=== PATIENT | male | born 1995 | race Two or more races ===

== ENCOUNTER 2016-07-10 09:11 | Emergency (ER) | payer OTHER ==
[2016-07-10 09:20] VITALS: BP 128/73; PULSE 106; TEMP 98.8; BMI 24.5
--- NOTE | 2016-07-10 10:52 | PDOC ---
History of Present Illness - General Chief Complaint: Cold Symptoms Stated Complaint: COUGH, NOSE BLEED Time Seen by Provider: 07/10/16 09:55 History Source: Patient, Parent(s) Exam Limitations: No Limitations - History of Present Illness Initial Comments: 07/11/16 19:33 Chief complaint: Nasal congestion, hoarse voice, dry cough, nose bleed Story of present illness: Patient is a 20-year-old male with no significant medical history here today complaining of nasal congestion, with hoarse voice and dry cough with intermittent nosebleed for 2 days. Patient denies any shortness of breath. Patient denies fever. Patient denies any known sick contacts. Patient has been afebrile. Timing/Duration: intermittent Severity: mild Associated Symptoms: reports: cough (dry ), other (nasal congestion with intermittent nosebleed last 2 days ). denies: shortness of breath Past History - Past Medical History Allergies/Adverse Reactions: Allergies Allergy/AdvReac Type Severity Reaction Status Date / Time No Known Allergies Allergy Verified 07/10/16 09:16 Home Medications: Ambulatory Orders Dextromethorphan Polistirex [Delsym] 60 mg PO Q12H PRN #1 ml 07/10/16 Fexofenadine/Pseudoephedrine [Gill-D 12 Hour Tablet] 1 each PO DAILY #7 tab.er.12h 07/10/16 Other medical history: NONE - Psycho/Social/Smoking Cessation Hx Anxiety: No Suicidal Ideation: No Smoking History: Never smoked Have you smoked in the past 12 months: No Information on smoking cessation initiated: No Hx Alcohol Use: No Drug/Substance Use Hx: No Substance Use Type: None Review of Systems - Review of Systems Able to Perform ROS?: Yes Constitutional: No: Symptoms Reported HEENTM: Yes: Nose Congestion, Other (nosebleed intermittent, hoarse voice ) Respiratory: No: Cough, Shortness of Breath, SOB with Exertion, SOB at Rest, Stridor, Wheezing, Productive cough Cardiac (ROS): No: Symptoms Reported ABD/GI: No: Symptoms Reported : No: Symptoms Reported Musculoskeletal: No: Symptoms Reported Integumentary: No: Symptoms Reported *Physical Exam - Vital Signs Last Vital Signs Temp Pulse Resp BP Pulse Ox 98.8 F 106 H 18 128/73 100 07/10/16 09:17 07/10/16 09:17 07/10/16 09:17 07/10/16 09:17 07/10/16 09:17 - Physical Exam General Appearance: Yes: Appropriately Dressed HEENT: positive: TMs Normal, Nasal Congestion. negative: Pharyngeal Erythema, Tonsillar Exudate, Tonsillar Erythema, Rhinorrhea, Sinus Tenderness Neck: negative: Lymphadenopathy (R), Lymphadenopathy (L) Respiratory/Chest: positive: Lungs Clear, Normal Breath Sounds. negative: Chest Tender, Respiratory Distress Cardiovascular: positive: Regular Rhythm, Regular Rate, S1, S2 Integumentary: positive: Normal Color Neurologic: positive: Alert, Normal Response, Responsive Medical Decision Making - Medical Decision Making 07/11/16 19:34 Patient is a 20-year-old male with no significant medical history here today complaining of nasal congestion, with hoarse voice and dry cough with intermittent nosebleed for 2 days. Patient denies any shortness of breath. Patient denies fever. Patient denies any known sick contacts. Patient has been afebrile. 07/11/16 19:36 Nasal congestion, cough, intermittent epistasis Plan: Delsym 10 mL q 12 hours when necessary cough 5 days Gill 180 mg daily x 7 days 07/11/16 19:37 *DC/Admit/Observation/Transfer Diagnosis at time of Disposition: Cough, Nasal congestion, Epistaxis - Discharge Dispostion Disposition: HOME Condition at time of disposition: Stable - Prescriptions Prescriptions: Fexofenadine/Pseudoephedrine [Gill-D 12 Hour Tablet] 1 each PO DAILY #7 tab.er.12h Dextromethorphan Polistirex [Delsym] 60 mg PO Q12H PRN #1 ml PRN Reason: Cough - Referrals Referrals: Ron Flores MD [Staff Physician] - - Patient Instructions Additional Instructions: Follow-up with ear nose and throat Dr. Flores if nosebleed worsens If nosebleed reoccurs apply pressure to both sides of your nose and do not let up for at least 10-15 minutes Follow-up with your primary care provider within the next few days Return to emergency room if any difficulty breathing Patient voiced understanding of discharge instructions and all questions were answered
== END 2016-07-10 11:00 | disposition home or self-care (01) ==
LOC: JERFT 09:11
DX: R05 Cough (principal); R04.0 Epistaxis
CPT/HCPCS: 99281-25